=== PATIENT | female | born 1985 ===

== ENCOUNTER 2021-05-16 05:59 | Day surgery (SDC) | payer OTHER ==
[~2021-05-16 05:59] MED LIST: SPRINTEC 28 DA1 EACH PO
== END 2021-05-16 15:50 | disposition home or self-care (01) ==
LOC: CIR.AMB 05:59
PROVIDERS: ATTEND Surgery
DX: D23.9 Other benign neoplasm of skin, unspecified (principal); J32.8 Other chronic sinusitis; M41.80 Other forms of scoliosis, site unspecified